=== PATIENT | male | born 1975 | race Caucasian/White ===

== ENCOUNTER 2020-10-15 10:22 | Outpatient (CLI) | payer BC, SELFPAY ==
[2020-10-15 11:07] LABS: SARS-CoV-2 Ag Negative (Negative)
== END 2020-10-15 10:23 | disposition home or self-care (01) ==
PROVIDERS: PCP Internal Medicine; Visit Provider Internal Medicine
DX: Z20.828 Contact with and (suspected) exposure to other viral communicable diseases (principal)
CPT/HCPCS: 87426

== ENCOUNTER 2021-01-15 08:58 | Outpatient (CLI) | payer BC, SELFPAY ==
[2021-01-15 09:47] LABS: SARS-CoV-2 Ag Negative (Negative)
[2021-01-16 19:41] LABS: SARS-CoV-2 RNA PCR Negative
== END 2021-01-15 08:59 | disposition home or self-care (01) ==
LOC: CHSLAB 09:00
PROVIDERS: PCP Internal Medicine; Visit Provider Internal Medicine
DX: Z20.822 Contact with and (suspected) exposure to COVID-19 (principal)
CPT/HCPCS: 87426; C9803; U0003; U0005

== ENCOUNTER 2023-02-06 16:20 | Outpatient (CLI) | payer BC, SELFPAY ==
--- NOTE | ~2023-02-06 | XR_ITS ---
XR shoulder RT min 2V DATE: 02/06/2023 16:41 INDICATION: Clicking/popping in shoulder for 6 months TECHNIQUE: 4 views COMPARISON: None FINDINGS: No fracture or dislocation, periosteal reaction or bone destruction or abnormal soft tissue calcification of the right shoulder. IMPRESSION: Negative right shoulder Reviewed, dictated and finalized at location B. RVISOR MARBLE IMPRESSION: Negative right shoulder
--- NOTE | ~2023-02-06 | XR_ITS ---
XR shoulder LT min 2V DATE: 02/06/2023 16:42 INDICATION: Bilateral shoulder pain for 6 months TECHNIQUE: 4 views COMPARISON: None FINDINGS: There is mild degenerative change of the left acromioclavicular joint. Normal alignment at the acromioclavicular and glenohumeral joints. No fracture or dislocation, periosteal reaction or bon e destruction or abnormal left shoulder soft tissue calcification is noted otherwise. IMPRESSION: Mild degenerative change at left acromioclavicular joint Reviewed, dictated and finalized at location B. [employer]
== END 2023-02-06 16:21 | disposition home or self-care (01) ==
PROVIDERS: PCP Internal Medicine; Visit Provider Internal Medicine
DX: M25.512 Pain in left shoulder (principal); M25.511 Pain in right shoulder
CPT/HCPCS: 73030